=== PATIENT | male | born 1990 | race Caucasian/White ===

== ENCOUNTER 2019-01-24 14:51 | Emergency (ER) | payer SELFPAY ==
[~2019-01-24] VITALS: Ht 182.9 cm; Wt 66.7 kg
[2019-01-24 14:51] VITALS: BP 120/59
--- NOTE | 2019-01-24 14:52 | NUR ---
PT BIBA TO BED 10.
--- NOTE | 2019-01-24 14:55 | NUR ---
Note undone in EDM - 01/24/19 at 1548 by [email or web address] PT BIBA FOR ALOC, FOUND DOWN IN FRONT OF [place], REFUSING V/S, REFUSING ACCUCHECK . HX UNKNOWN. PATIENT PRESENTS TO ED WITH [] . PT STATES [] . DENIES N/V/D; SKIN IS PINK/WARM/DRY; AAOX4 WITH EVEN AND STEADY GAIT; LUNGS CLEAR BL; HR EVEN AND REGULAR; PT DENIES ANY FEVER, CP, SOB, OR COUGH AT THIS TIME; PATIENT STATES PAIN OF 0/10 AT THIS TIME; VSS; PATIENT POSITIONED FOR COMFORT; HOB ELEVATED; BEDRAILS UP X2; BED DOWN. ER MD MADE AWARE OF PT STATUS.
--- NOTE | 2019-01-24 15:24 | NUR ---
PT BIBA FOR ALOC, FOUND DOWN IN FRONT OF [place]EP[place].HX UNKNOWN. PATIENT REFUSED ANSWERING ANY QUESTIONS. VSS AT THIS TIME. PATIENT POSITIONED FOR COMFORT; HOB ELEVATED; BEDRAILS UP X2; BED DOWN. ER MD MADE AWARE OF PT STATUS.
--- NOTE | 2019-01-24 16:32 | NUR ---
Tried to assess patient. He would not follow commands to open eyes. When asked if he could hear me, he did not respond.
--- NOTE | 2019-01-24 17:19 | NUR ---
PT MOVED FROM BED 10 TO BED 11.
--- NOTE | 2019-01-24 18:40 | NUR ---
ATE FOOD 100% AT THIS TIME.
[2019-01-24 18:43] VITALS: BP 110/72
--- NOTE | 2019-01-24 18:43 | NUR ---
Patient discharged with v/s stable. Written and verbal after care instructions given and explained. Patient verbalized understanding. Ambulatory with steady gait. All questions addressed prior to discharge. Advised to follow up with PMD.
== END 2019-01-24 18:43 | disposition home or self-care (01) ==
LOC: MED 14:51
DX: R40.4 Transient alteration of awareness (principal); F15.10 Other stimulant abuse, uncomplicated
CPT/HCPCS: 99283

== ENCOUNTER 2022-12-19 05:14 | Emergency (ER) | payer MEDICAID ==
[2022-12-19] VITALS (8 sets, daily range): BP systolic 148; BP diastolic 72; PULSE 88; RESP 16; TEMP 97; O2SAT 96–100
[~2022-12-19] VITALS: Ht 175.3 cm; Wt 77.1 kg
[2022-12-19] MEDS ORDERED: OLANZapine 5 MG ODT PO ONE (08:40)
[2022-12-19] MEDS: OLANZapine 5 MG ODT PO SCH ×3 (09:08→17:09)
[2022-12-19 10:38] LABS: BASOPHILS % (AUTO) 0.6 % (0.0-2.0); EOSINOPHILS # (AUTO) 0.1 K/uL (0-0.4); EOSINOPHILS % (AUTO) 1.4 % (0.0-4.0); HEMATOCRIT 40.7 % (36-52); HEMOGLOBIN 13.6 g/dL (12.0-18.0); LYMPHOCYTES # (AUTO) 1.3 K/uL (2.0-11.5); LYMPHOCYTES % (AUTO) 18.3 % (20.5-51.1); MEAN CORPUSCULAR HEMOGLOBIN 29 pg (27-31); MEAN CORPUSCULAR HGB CONC 33 g/dL (33-37); MEAN CORPUSCULAR VOLUME 87.4 fL (80-94); MONOCYTES # (AUTO) 0.5 K/uL (0.8-1.0); MONOCYTES % (AUTO) 6.6 % (1.7-9.3); NEUTROPHILS # (AUTO) 5.3 K/uL (1.8-7.7); NEUTROPHILS % (AUTO) 73.1 % (42.2-75.2); PLATELET COUNT (AUTO) 304 K/uL (140-450); RED BLOOD CELL COUNT(AUTO) 4.66 MIL/uL (4.20-6.10); RED CELL DISTRIBUTION WIDTH 13.8 % (11.6-13.7); WHITE BLOOD COUNT (AUTO) 7.3 K/uL (4.8-10.8)
[2022-12-19 10:57] LABS: ALANINE AMINOTRANSFERASE 24 U/L (12-78); ALBUMIN 3.4 g/dL (3.4-5.0); ALCOHOL, BLOOD < 3 mg/dL (<10); ALKALINE PHOSPHATASE 60 U/L (50-136); ANION GAP 11.9 (8-16); ASPARTATE AMINOTRANSFERASE 16 U/L (15-37); CARBON DIOXIDE 27.9 mmol/L (21-32); CHLORIDE 103 mmol/L (98-107); CREATININE 0.9 mg/dL (0.6-1.3); GFR ARICAN-AMERICAN 126 mL/min (>90); GFR NON ARICAN-AMERICAN 104 mL/min (>90); GLUCOSE 108 mg/dL (74-106); POTASSIUM 3.8 mmol/L (3.5-5.1); SODIUM SERUM 139 mmol/L (136-145); TOTAL BILIRUBIN 0.3 mg/dL (0.0-1.0); TOTAL PROTEIN, SERUM 7.5 g/dL (6.4-8.2); UREA NITROGEN, BLOOD 7 mg/dL (7-18)
[2022-12-19 10:59] LABS: ACETAMINOPHEN < 0.5 ug/ml (10-30); SALICYLATE < 2.8 mg/dL (2.8-20.0)
[2022-12-19 16:37] LABS: AMPHETAMINE, URINE POSITIVE ng/ml (NEG <=1000); BARBITURATE, URINE NEGATIVE ng/ml (NEG <=200); BENZODIAZEPINE, URINE NEGATIVE ng/mL (NEG <=200); CANNABINOID, URINE NEGATIVE ng/mL (NEG <=50); COCAINE, URINE NEGATIVE ng/mL (NEG <=300); OPIATE, URINE NEGATIVE ng/mL (NEG <=2000); PHENCYCLIDINE SCREEN,URINE NEGATIVE ng/mL (NEG <=25)
[2022-12-20] VITALS (10 sets, daily range): O2SAT 96
[2022-12-20] MEDS: OLANZapine 5 MG ODT PO SCH ×3 (10:40→18:04)
[2022-12-21] MEDS: OLANZapine 5 MG ODT PO SCH ×3 (09:08→18:03)
[2022-12-21] MEDS ORDERED: LORazepam 1 MG TAB PO ONE (09:25)
[2022-12-22 08:45] VITALS: O2SAT 98
[2022-12-22] MEDS: OLANZapine 5 MG ODT PO SCH (09:08)
[2022-12-22 09:17] VITALS: BP 120/75; PULSE 80; RESP 18; TEMP 98.1; O2SAT 99
[2022-12-22] MEDS ORDERED: OLAN2.5T1 PO (09:28)
[2022-12-22] MEDS ORDERED: [UNRECOGNIZED DRUG - CODE] TP (09:31)
== END 2022-12-22 10:04 | disposition home or self-care (01) ==
LOC: MED 05:14
DX: R45.851 Suicidal ideations (principal); R44.0 Auditory hallucinations; F15.10 Other stimulant abuse, uncomplicated; F41.9 Anxiety disorder, unspecified; F32.9 Major depressive disorder, single episode, unspecified
CPT/HCPCS: 80053; 80305; 85025; 99285; G0480; G0482